=== PATIENT | female | born 1950 | race Caucasian/White ===

== ENCOUNTER 2025-01-31 09:06 | Inpatient (IN) | payer OTHER ==
[2025-01-31] VITALS (12 sets, daily range): BP systolic 95–114; BP diastolic 60–75
[~2025-01-31] VITALS: Ht 160 cm; Wt 57.6 kg
[2025-01-31 09:41] LABS: BASOPHILS ABSOLUTE AUTO 0.07 K/mm3 (0.00-0.23); BASOPHILS PERCENT AUTO 1 % (0-2); EOSINOPHILS ABSOLUTE AUTO 0.13 K/mm3 (0.00-0.68); EOSINOPHILS PERCENT AUTO 1 % (0-6); Hematocrit 51.9 % (33.0-51.0); Hemoglobin 18.0 g/dL (11.5-16.0); IMMATURE GRAN ABSOLUTE AUTO 0.02 K/mm3 (0.00-0.10); IMMATURE GRAN PERCENT AUTO 0 % (0-1); LYMPHOCYTES ABSOLUTE AUTO 3.39 K/mm3 (0.84-5.20); LYMPHOCYTES PERCENT AUTO 33 % (21-46); MONOCYTES ABSOLUTE AUTO 0.77 K/mm3 (0.16-1.47); MONOCYTES PERCENT AUTO 8 % (4-13); Mean Corpuscular HGB Conc 34.7 g/dL (31.5-36.5); Mean Corpuscular Volume 88 fL (80-100); NEUTROPHILS ABSOLUTE AUTO 5.81 K/mm3 (1.96-9.15); NEUTROPHILS PERCENT AUTO 57 % (41-73); NRBC ABSOLUTE 0.00 K/mm3 (0.00-0.02); NRBC Auto 0.0 /100 WBC (0.0-0.2); Platelet Count 344 K/mm3 (150-400); RDW Coefficient Variation 13.1 % (11.7-14.2); RDW Standard Deviation 42.5 fL (35.1-46.3)
[2025-01-31 10:03] LABS: Alanine Aminotransfer (ALT/SGP 33.0 U/L (12-78); Albumin, Blood 4.3 g/dL (3.4-5.0); Albumin/Globulin Ratio 1.1 (0.8-1.8); Anion Gap 9.0 mmol/L (3-11); Aspartate Aminotrans (AST/SGOT 27.0 U/L (12-37); Bilirubin, Total 0.9 mg/dL (0.1-1.0); Blood Urea Nitrogen 9.0 mg/dL (8-24); CO2, Blood 24.0 mmol/L (21-32); Calcium, Blood 9.1 mg/dL (8.5-10.1); Chloride, Blood 106.0 mmol/L (98-108); Creatinine, Blood 0.78 mg/dL (0.40-1.00); Globulin, Blood 3.8 g/dL (2.2-4.0); Glucose, Blood 105.0 mg/dL (70-99); Magnesium, Blood 2.1 mg/dL (1.6-2.4); Potassium, Blood 4.1 mmol/L (3.5-5.5); Sodium, Blood 135.0 mmol/L (136-145); Total Protein, Blood 8.1 g/dL (6.4-8.2)
[2025-01-31] MEDS ORDERED: Morphine Sulfate 4 MG/1 ML Injection IV ONE (11:50)
[2025-01-31] MEDS ORDERED: Midazolam HCl 1MG / ML 2ML Vial IV ONE (11:55)
[2025-01-31] MEDS ORDERED: Nitroglycerin 1 INCH/GM PKT TOP ONE (12:15)
[2025-01-31 12:44] LABS: Anti-Xa UFH, PHA Monitoring <0.10 IU/mL; Prothrombin Time Results 11.3 Sec (9.7-11.5)
[2025-01-31] MEDS ORDERED: Heparin Sodium,Porcine/0.5 NS 500 ML IV SCH (12:55)
[2025-01-31] MEDS ORDERED: Heparin Sodium 5000 Units/ML 1ML MDV IV ONE (12:55)
[2025-01-31] MEDS ORDERED: SERT25 PO (18:08)
[2025-01-31] MEDS ORDERED: BUPR75 PO (18:08)
--- NOTE | 2025-01-31 19:13 | NUR ---
PT ARRIVED TO FLOOR AT 1806. PT HAS 1/10 CP IN RIGHT CHEST. STATES IT FEELS BETTER IF SHE PUSHES ON IT. PT ALSO STATES THAT SHE HAS BEEN MAKING HERSELF THROW UP TO RELIEVE CP. TROPONIN 415, LAB TO REPEAT AT 1749. HEP GGT AT 18 ML/HR PER ORDERS, PHARMACY MANAGING. NEXT LAB AT 1999. BP STABLE WITH SYSTOLIC IN THE ONE TEENS. IV X2 PATENT. PLAN FOR ECHO. STRESS TEST ORDERED. EKG REPEATED. CARDIOLOGY CONSULTED. CT CHEST NEGATIVE FOR PE. NPO AT THIS TIME FOR POSSIBLE ANGIOGRAM. AM LABS ORDERED. PLAN TO TRANSFER TO PCU.
[2025-01-31] MEDS ORDERED: Dose Adjust by Pharmacy XX STA (20:55)
--- NOTE | 2025-01-31 21:13 | NUR ---
2035 transfer of care to pcu, patient alert and oriented, chest pain resolves when patient not moving, heparin gtt infusing 18 ml/hr 15 u/k/h, oob to bathroom once, experienced chest pain, chest pain resolved once sitting down. npo started, to have cath placed in am, moved to pcu
[2025-01-31] MEDS ORDERED: NS 1,000 ML IV SCH (22:05)
[2025-02-01] VITALS (16 sets, daily range): BP systolic 86–112; BP diastolic 57–73
[2025-02-01 03:18] LABS: BASOPHILS ABSOLUTE AUTO 0.05 K/mm3 (0.00-0.23); BASOPHILS PERCENT AUTO 1 % (0-2); EOSINOPHILS ABSOLUTE AUTO 0.11 K/mm3 (0.00-0.68); EOSINOPHILS PERCENT AUTO 1 % (0-6); Hematocrit 45.7 % (33.0-51.0); Hemoglobin 15.3 g/dL (11.5-16.0); IMMATURE GRAN ABSOLUTE AUTO 0.02 K/mm3 (0.00-0.10); IMMATURE GRAN PERCENT AUTO 0 % (0-1); LYMPHOCYTES ABSOLUTE AUTO 3.20 K/mm3 (0.84-5.20); LYMPHOCYTES PERCENT AUTO 29 % (21-46); MONOCYTES ABSOLUTE AUTO 0.93 K/mm3 (0.16-1.47); MONOCYTES PERCENT AUTO 9 % (4-13); Mean Corpuscular HGB Conc 33.5 g/dL (31.5-36.5); Mean Corpuscular Volume 90 fL (80-100); NEUTROPHILS ABSOLUTE AUTO 6.63 K/mm3 (1.96-9.15); NEUTROPHILS PERCENT AUTO 61 % (41-73); NRBC ABSOLUTE 0.00 K/mm3 (0.00-0.02); NRBC Auto 0.0 /100 WBC (0.0-0.2); Platelet Count 261 K/mm3 (150-400); RDW Coefficient Variation 13.2 % (11.7-14.2); RDW Standard Deviation 43.8 fL (35.1-46.3)
[2025-02-01 03:43] LABS: Alanine Aminotransfer (ALT/SGP 25 U/L (12-78); Albumin, Blood 3.5 g/dL (3.4-5.0); Albumin/Globulin Ratio 1.1 (0.8-1.8); Anion Gap 10 mmol/L (3-11); Aspartate Aminotrans (AST/SGOT 31 U/L (12-37); Bilirubin, Total 0.7 mg/dL (0.1-1.0); Blood Urea Nitrogen 9 mg/dL (8-24); CHOL/HDL RATIO 6.0; CO2, Blood 22 mmol/L (21-32); Calcium, Blood 8.2 mg/dL (8.5-10.1); Chloride, Blood 108 mmol/L (98-108); Cholesterol 302 mg/dL (50-200); Creatinine, Blood 0.63 mg/dL (0.40-1.00); Globulin, Blood 3.1 g/dL (2.2-4.0); Glucose, Blood 81 mg/dL (70-99); HDL Cholesterol 50 mg/dL (>39); LDL/HDL RATIO 4.7; Low Density Lipoprotein Chol 236 mg/dL (0-110); Magnesium, Blood 1.9 mg/dL (1.6-2.4); Potassium, Blood 3.4 mmol/L (3.5-5.5); Sodium, Blood 137 mmol/L (136-145); Total Protein, Blood 6.6 g/dL (6.4-8.2); Triglycerides 79 mg/dL (30-160); Very Low Density Lipoprot Chol 16 mg/dL (6-32)
[2025-02-01] MEDS ORDERED: Dose Adjust by Pharmacy XX STA (03:58)
--- NOTE | 2025-02-01 06:24 | NUR ---
PT TRANSFERRED FROM MEDICAL FLOOR. PT HAD COMPLAINT OF MILD CHEST PAIN. PT MEDICATED PER JUL. TROPONIN LEVEL INCREASED THROUGHTOUT THE SHIFT. PROVIDER NOTIFIED AND AWARE. NO NEW ORDERS RECEIVED. HEPARIN INFUSING IN RIGHT FOREARM. IV FLUIDS INFUSING IN RIGHT AC. PT'S BP HAS BEEN SOFT AND STABLE. NO COMPLAINT OF CHEST PAIN AFTER MEDICATION GIVEN. PT CALLS APPROPRIATELY TO GO TO RESTROOM. STANDBY ASSISTANCE PROVIDED. PT HAS BEEN NPO SINCE MIDNIGHT PENDING STRESS TEST AND/OR ANGIO TODAY. BED LOCKED IN LOWEST POSITION. CALL LIGHT WITHIN REACH.
[2025-02-01] MEDS ORDERED: NS 500 ML IV ONE (08:10)
--- NOTE | 2025-02-01 08:11 | NUR ---
CARE ASSUMPTION PT A&OX4. SP02>90%ON RA. PT C/O OF MILD R SIDE CP. MD GUILLEN IN ROOM. PT VERBALIZED AGREEING TO ANGIOGRAM. MD GUILLEN W/ ORDER TO GIVE NITRO FOR CP AND 500 CC NS BOLUS TO BOOST SOFT BP 86/69.
[2025-02-01] MEDS ORDERED: Heparin Sodium 1000 Units/ML 10ML MDV ONE (08:37)
[2025-02-01] MEDS ORDERED: Nitroglycerin 2 MG/20 ML BTL ONE (08:37)
[2025-02-01] MEDS ORDERED: NiCARdipine HCL 1,000 MCG/5 ML SYR ONE (08:37)
[2025-02-01] MEDS ORDERED: NS 250 ML IV ONE (08:37)
[2025-02-01] MEDS ORDERED: NS 1,000 ML IV ONE ×2 (08:37→08:46)
[2025-02-01] MEDS ORDERED: Verapamil HCL 2.5 MG/ML 2ML Injection ONE (08:37)
[2025-02-01] MEDS ORDERED: FentaNYL Citrate 50 MCG/ML 2 ML Injection ONE (08:46)
[2025-02-01] MEDS ORDERED: Midazolam HCl 1MG / ML 2ML Vial ONE (08:46)
[2025-02-01] MEDS ORDERED: Mag Sulfate 1 GM/D5% 100ML 100 ML IV STA (08:57)
[2025-02-01] MEDS ORDERED: NS 1,000 ML IV SCH (10:15)
--- NOTE | 2025-02-01 14:43 | NUR ---
UPDATE TR BAND FULLY DEFLATED AT THIS TIME. SLIGHT BRUISING. NO BLEEDING, NO HEMATOMA NOTED. ARM BOARD IN PLACE. PT CONVERSATING WITH FAMILY IN ROOM. CALL LIGHT IN REACH.
--- NOTE | 2025-02-01 16:13 | NUR ---
UPDATE TR BAND REMOVED AT THIS TIME. MINIMAL BRUISING. NO BLEEDING, NO HEMATOMA. OPSITE IN PLACE. ARM BOARD IN PLACE.
--- NOTE | 2025-02-01 17:18 | NUR ---
SHIFT SUMMARY NO ACUTE CHANGES SINCE PREVIOUS NOTES. PT A&OX4. SP02>90% ON RA. TELEMETRY SHWS NSR HR 60'S-70'S, BP SOFT. C/O OF MILD INTERMITTANT R SIDE CP. R RADIAL SITE RECOVERED, ARM BOARD IN PLACE. MAG REPLACED PER ORDERS. UP TO BATHROOM TO VOID SBA TO MANAGE CORDS. NS INFUSING PER EMAR. MANY FAMILY MEMBERS VISITING THIS AFTERNOON. PT CRRENTLY SITTING IN ROOM TALKING WITH FAMILY. CALL LIGHT IN REACH.
[2025-02-02 03:15] VITALS: BP 108/68
[2025-02-02 04:35] LABS: BASOPHILS ABSOLUTE AUTO 0.04 K/mm3 (0.00-0.23); BASOPHILS PERCENT AUTO 0 % (0-2); EOSINOPHILS ABSOLUTE AUTO 0.14 K/mm3 (0.00-0.68); EOSINOPHILS PERCENT AUTO 1 % (0-6); Hematocrit 42.0 % (33.0-51.0); Hemoglobin 14.3 g/dL (11.5-16.0); IMMATURE GRAN ABSOLUTE AUTO 0.03 K/mm3 (0.00-0.10); IMMATURE GRAN PERCENT AUTO 0 % (0-1); LYMPHOCYTES ABSOLUTE AUTO 2.57 K/mm3 (0.84-5.20); LYMPHOCYTES PERCENT AUTO 26 % (21-46); MONOCYTES ABSOLUTE AUTO 1.04 K/mm3 (0.16-1.47); MONOCYTES PERCENT AUTO 10 % (4-13); Mean Corpuscular HGB Conc 34.0 g/dL (31.5-36.5); Mean Corpuscular Volume 89 fL (80-100); NEUTROPHILS ABSOLUTE AUTO 6.27 K/mm3 (1.96-9.15); NEUTROPHILS PERCENT AUTO 62 % (41-73); NRBC ABSOLUTE 0.00 K/mm3 (0.00-0.02); NRBC Auto 0.0 /100 WBC (0.0-0.2); Platelet Count 260 K/mm3 (150-400); RDW Coefficient Variation 13.5 % (11.7-14.2); RDW Standard Deviation 44.2 fL (35.1-46.3)
[2025-02-02 04:55] LABS: Alanine Aminotransfer (ALT/SGP 27.0 U/L (12-78); Albumin, Blood 3.4 g/dL (3.4-5.0); Albumin/Globulin Ratio 1.2 (0.8-1.8); Anion Gap 7.0 mmol/L (3-11); Aspartate Aminotrans (AST/SGOT 73.0 U/L (12-37); Bilirubin, Total 0.6 mg/dL (0.1-1.0); Blood Urea Nitrogen 5.0 mg/dL (8-24); CO2, Blood 25.0 mmol/L (21-32); Calcium, Blood 8.3 mg/dL (8.5-10.1); Chloride, Blood 110.0 mmol/L (98-108); Creatinine, Blood 0.73 mg/dL (0.40-1.00); Globulin, Blood 2.9 g/dL (2.2-4.0); Glucose, Blood 89.0 mg/dL (70-99); Magnesium, Blood 2.0 mg/dL (1.6-2.4); Potassium, Blood 4.4 mmol/L (3.5-5.5); Sodium, Blood 138.0 mmol/L (136-145); Total Protein, Blood 6.3 g/dL (6.4-8.2)
--- NOTE | 2025-02-02 06:39 | NUR ---
NO ACUTE EVENTS OVERNIGHT. PT MAINTAINED ARM BOARD ON RIGHT ARM. VSS. DENIES ANY CHEST PAIN/PRESSURE CURRENTLY. EKG OBTAINED THIS MORNING S/P STENT. PT CALLED APPROPRIATELY. BED LOCKED IN LOWEST POSITION. CALL LIGHT WITHIN REACH. PT INDEPENDENT/STANDBY ASSISTANCE TO THE BATHROOM.
[2025-02-02 09:50] VITALS: BP 101/63
[2025-02-02] MEDS ORDERED: ASPI81CH PO (10:23)
[2025-02-02] MEDS ORDERED: ATOR80 PO (10:25)
[2025-02-02] MEDS ORDERED: EZET10 PO (10:26)
[2025-02-02] MEDS ORDERED: METO25ER PO (10:27)
[2025-02-02] MEDS ORDERED: LOSA25 PO (10:27)
[2025-02-02] MEDS ORDERED: NITR.4SL SL (10:28)
[2025-02-02] MEDS ORDERED: EFFIENT10 MG PO (10:28)
[2025-02-02] MEDS ORDERED: NICO2 PO (10:29)
== END 2025-02-02 11:33 | disposition home or self-care (01) | DRG 322 ==
LOC: ER 09:06 → ERHOLD 09:07 → PCU 09:07 → ERHOLD 09:07 → MEDS 17:50 → PCU 20:14
PROVIDERS: Internal Medicine Cardiovascular Disease; Student in an Organized Health Care Education/Training Program; ADMIT Internal Medicine
PROC: 027034Z Dilation of Coronary Artery, One Artery with Drug-eluting Intraluminal Device, Percutaneous Approach (ICD-10-PCS; principal; 2025-02-01)
PROC: 4A023N7 Measurement of Cardiac Sampling and Pressure, Left Heart, Percutaneous Approach (ICD-10-PCS; 2025-02-01)
PROC: B2111ZZ Fluoroscopy of Multiple Coronary Arteries using Low Osmolar Contrast (ICD-10-PCS; 2025-02-01)
DX: I21.4 Non-ST elevation (NSTEMI) myocardial infarction (principal); I50.20 Unspecified systolic (congestive) heart failure; F17.210 Nicotine dependence, cigarettes, uncomplicated; F41.9 Anxiety disorder, unspecified; I95.9 Hypotension, unspecified; E78.5 Hyperlipidemia, unspecified; H53.8 Other visual disturbances; E87.8 Other disorders of electrolyte and fluid balance, not elsewhere classified; Z98.891 History of uterine scar from previous surgery; Z98.890 Other specified postprocedural states; Z79.82 Long term (current) use of aspirin; Z79.899 Other long term (current) drug therapy
CPT/HCPCS: 36415; 71260; 76937; 80053; 80061; 83036; 83735; 84484; 85025; 85347; 85520; 85610; 85730; 93005; 93010; 93458; 94762; 96365; 96366; 96374-59; 96375; 99152; 99153; 99285-25; A9270; C1725; C1769; C1874; C1887; C1894; C8929; C9600; G0378; J1644; J2250; J2270; J3010; J3475; J7030; J7040; J7050; Q9957; Q9967

== ENCOUNTER → 2025-03-17 | Outpatient (CLI) | payer OTHER ==
[~2025-03-17] MED LIST: ASPI81CH PO; ATOR80 PO; BUPR75 PO; EFFIENT10 MG PO; EZET10 PO; LOSA25 PO; METO25ER PO; NICO2 PO; NITR.4SL SL; SERT25 PO
[2025-03-17 16:12] LABS: BASOPHILS ABSOLUTE AUTO 0.06 K/mm3 (0.00-0.23); BASOPHILS PERCENT AUTO 1 % (0-2); EOSINOPHILS ABSOLUTE AUTO 0.33 K/mm3 (0.00-0.68); EOSINOPHILS PERCENT AUTO 4 % (0-6); Hematocrit 42.4 % (33.0-51.0); Hemoglobin 13.6 g/dL (11.5-16.0); IMMATURE GRAN ABSOLUTE AUTO 0.02 K/mm3 (0.00-0.10); IMMATURE GRAN PERCENT AUTO 0 % (0-1); LYMPHOCYTES ABSOLUTE AUTO 2.44 K/mm3 (0.84-5.20); LYMPHOCYTES PERCENT AUTO 28 % (21-46); MONOCYTES ABSOLUTE AUTO 0.77 K/mm3 (0.16-1.47); MONOCYTES PERCENT AUTO 9 % (4-13); Mean Corpuscular HGB Conc 32.1 g/dL (31.5-36.5); Mean Corpuscular Volume 91 fL (80-100); NEUTROPHILS ABSOLUTE AUTO 5.09 K/mm3 (1.96-9.15); NEUTROPHILS PERCENT AUTO 59 % (41-73); NRBC ABSOLUTE 0.00 K/mm3 (0.00-0.02); NRBC Auto 0.0 /100 WBC (0.0-0.2); Platelet Count 264 K/mm3 (150-400); RDW Coefficient Variation 13.2 % (11.7-14.2); RDW Standard Deviation 44.5 fL (35.1-46.3)
[2025-03-18 04:55] LABS: Alanine Aminotransfer (ALT/SGP 78.0 U/L (12-78); Albumin, Blood 3.9 g/dL (3.4-5.0); Albumin/Globulin Ratio 1.2 (0.8-1.8); Anion Gap 9.0 mmol/L (3-11); Aspartate Aminotrans (AST/SGOT 39.0 U/L (12-37); Bilirubin, Total 0.6 mg/dL (0.1-1.0); Blood Urea Nitrogen 15.0 mg/dL (8-24); CO2, Blood 28.0 mmol/L (21-32); Calcium, Blood 9.5 mg/dL (8.5-10.1); Chloride, Blood 104.0 mmol/L (98-108); Creatinine, Blood 0.7 mg/dL (0.40-1.00); Globulin, Blood 3.2 g/dL (2.2-4.0); Glucose, Blood 90.0 mg/dL (70-99); Potassium, Blood 4.6 mmol/L (3.5-5.5); Sodium, Blood 136.0 mmol/L (136-145); Total Protein, Blood 7.1 g/dL (6.4-8.2)
== END ==
LOC: LAB 14:51 → LAB SHORT 14:51
PROVIDERS: Family Medicine
DX: I21.4 Non-ST elevation (NSTEMI) myocardial infarction (principal); E78.019 Familial hypercholesterolemia, unspecified
CPT/HCPCS: 80053; 85025